=== PATIENT | male | born 1950 | race Caucasian/White ===

== ENCOUNTER 2016-08-01 16:10 | Observation (INO) | payer OTHER ==
[2016-08-01] MEDS ORDERED: SODIUM CHLORIDE 0.9% 1,000 ML IV STA ×2 (16:32)
[2016-08-01 16:55] LABS: Basophils # (A) 0.1 k/uL (0-0.2); Basophils % (A) 1 %; CH 31.6; CHCM 34.3; Eosinophils # (A) 0.2 k/uL (0-0.7); Eosinophils % (A) 3 %; HCT 46.1 % (39.0-53.0); HDW 2.71; HGB 15.6 gm/dL (13.0-17.5); Luc # (Auto) 0.18; Luc % (Auto) 2; Lymphocytes # (A) 2.2 k/uL (1.0-4.8); Lymphocytes % (A) 27 %; MCH 31.3 pg (25.0-35.0); MCHC 33.8 g/dL (31.0-37.0); MCV 92.5 fL (80.0-100.0); Mean Platelet Volume 8.4; Monocytes # (A) 0.4 k/uL (0-1.0); Monocytes % (A) 5 %; Neutrophils # (A) 4.8 k/uL (1.3-7.7); Neutrophils % (A) 61 %; RBC 4.98 m/uL (4.30-5.90); RDW 13.9 % (11.5-15.5); WBC 7.9 k/uL (3.8-10.6); WBC (Perox) 7.44
[2016-08-01 17:02] LABS: ALT 67 U/L (21-72); AST 41 U/L (17-59); Alkaline Phosphatase 74 U/L (38-126); Anion Gap 9 mmol/L; Blood Urea Nitrogen 23 mg/dL (9-20); Calcium 9.2 mg/dL (8.4-10.2); Carbon Dioxide 23 mmol/L (22-30); Chloride 109 mmol/L (98-107); Glucose 160 mg/dL (74-99); Magnesium 2.2 mg/dL (1.6-2.3); Non-African American GFR(MDRD) 58 (>60 ml/min/1.73 sqM); Phosphorous 3.5 mg/dL (2.5-4.5); Potassium 4.1 mmol/L (3.5-5.1); Sodium 141 mmol/L (137-145); Total Bilirubin 1.2 mg/dL (0.2-1.3); Total Protein 6.9 g/dL (6.3-8.2)
[2016-08-01 17:18] LABS: Creatine Kinase MB 1.9 ng/mL (0.0-2.4); Troponin I 0.019 ng/mL (0.000-0.034)
--- NOTE | 2016-08-01 17:32 | ED ---
General Adult HPI - General Chief complaint: Weakness Stated complaint: SOB Source: patient, family, RN notes reviewed, old records reviewed Mode of arrival: wheelchair Limitations: no limitations - History of Present Illness Initial comments: This is a 66 male to the ED co weakness, lethargy, generalized fatigue, patient did long 11 hr day in truck without Air conditioning yesterday. Patient is weak and has remained weak and fatigued today and throughout the day. Patient has no CP and no SOB, no fevers, does admit to diminished appetite MD Complaint: weakness, fatigue -: days(s) (1) Severity scale (1-10): 7 Consistency: constant Improves with: none Worsens with: none Associated Symptoms: weakness - Related Data Home Medications Medication Instructions Recorded Confirmed Metoprolol Tartrate 12.5 mg PO BID 12/19/15 08/01/16 Aspirin 325 mg PO DAILY 08/01/16 08/01/16 Loratadine-Pseudoeph 10-240 mg 1 tab PO DAILY 08/01/16 08/01/16 [Claritin-D 24 Hr] Allergies Allergy/AdvReac Type Severity Reaction Status Date / Time brompheniramine maleate Allergy Unknown Verified 08/01/16 16:42 [From Dimetapp Cold-Allergy (PE)] phenylephrine HCl Allergy Unknown Verified 08/01/16 16:42 [From Dimetapp Cold-Allergy (PE)] Review of Systems ROS Statement: Those systems with pertinent positive or pertinent negative responses have been documented in the HPI. ROS Other: All systems not noted in ROS Statement are negative. Past Medical History Past Medical History: Atrial Fibrillation, Mitral Valve Prolapse (MVP) Additional Past Medical History / Comment(s): Mitral Valve Prolapse. History of Any Multi-Drug Resistant Organisms: None Reported Past Surgical History: Appendectomy, Hernia Repair, Tonsillectomy Additional Past Surgical History / Comment(s): COLONOSCOPY Past Anesthesia/Blood Transfusion Reactions: No Reported Reaction Past Psychological History: No Psychological Hx Reported Smoking Status: Never smoker Past Alcohol Use History: None Reported Past Drug Use History: None Reported - Past Family History Mother Family Medical History: Dementia, Hypertension Father Family Medical History: Cancer Additional Family Medical History / Comment(s): has pacemaker, father had colon cancer in his 70's General Exam Limitations: no limitations General appearance: alert, in no apparent distress, anxious, lethargic Head exam: Present: atraumatic, normocephalic, normal inspection Eye exam: Present: normal appearance, PERRL, EOMI. Absent: scleral icterus, conjunctival injection, periorbital swelling ENT exam: Present: normal exam, mucous membranes dry, TM's normal bilaterally Neck exam: Present: normal inspection. Absent: tenderness, meningismus, lymphadenopathy Respiratory exam: Present: normal lung sounds bilaterally. Absent: respiratory distress, wheezes, rales, rhonchi, stridor Cardiovascular Exam: Present: tachycardia, irregular rhythm, normal heart sounds. Absent: systolic murmur, diastolic murmur, rubs, gallop, clicks GI/Abdominal exam: Present: soft, normal bowel sounds. Absent: distended, tenderness, guarding, rebound, rigid Extremities exam: Present: normal inspection, full ROM, normal capillary refill. Absent: tenderness, pedal edema, joint swelling, calf tenderness Back exam: Present: normal inspection Neurological exam: Present: alert, oriented X3, CN II-XII intact Psychiatric exam: Present: normal affect, normal mood Skin exam: Present: warm, dry, intact, normal color. Absent: rash Course Vital Signs 08/01/16 08/01/16 16:13 17:17 Temperature 97.8 F Pulse Rate 56 L 70 Respiratory 16 20 Rate Blood Pressure 105/67 100/70 O2 Sat by Pulse 99 97 Oximetry EKG Findings - EKG Comments: EKG Findings:: EKG shows atrial fibrillationwith a rate of 126, afib with rvr, qrs 78, qtc 457 Medical Decision Making - Medical Decision Making 60 formality ER for evaluation of severe shortness of breath and weakness lethargy. Patient states was in the car from extended period of time with no air conditioning in extreme heat. Patient been fatigued all day, no specific chest pain with exertional shortness of breath. Patient be admitted for cardiac observation at this time he has no real improvement with IV fluid - Lab Data Result diagrams: 08/01/16 16:33 08/01/16 16:33 Lab Results 08/01/16 08/01/16 08/01/16 Range/Units 16:33 16:33 16:33 WBC 7.9 (3.8-10.6) k/uL RBC 4.98 (4.30-5.90) m/uL Hgb 15.6 (13.0-17.5) gm/dL Hct 46.1 (39.0-53.0) % MCV 92.5 (80.0-100.0) fL MCH 31.3 (25.0-35.0) pg MCHC 33.8 (31.0-37.0) g/dL RDW 13.9 (11.5-15.5) % Plt Count 209 (150-450) k/uL Neutrophils % 61 % Lymphocytes % 27 % Monocytes % 5 % Eosinophils % 3 % Basophils % 1 % Neutrophils # 4.8 (1.3-7.7) k/uL Lymphocytes # 2.2 (1.0-4.8) k/uL Monocytes # 0.4 (0-1.0) k/uL Eosinophils # 0.2 (0-0.7) k/uL Basophils # 0.1 (0-0.2) k/uL Sodium 141 (137-145) mmol/L Potassium 4.1 (3.5-5.1) mmol/L Chloride 109 H (98-107) mmol/L Carbon Dioxide 23 (22-30) mmol/L Anion Gap 9 mmol/L BUN 23 H (9-20) mg/dL Creatinine 1.26 H (0.66-1.25) mg/dL Est GFR (MDRD) Af Amer >60 (>60 ml/min/1.73 sqM) Est GFR (MDRD) Non-Af 58 (>60 ml/min/1.73 sqM) Glucose 160 H (74-99) mg/dL Calcium 9.2 (8.4-10.2) mg/dL Phosphorus 3.5 (2.5-4.5) mg/dL Magnesium 2.2 (1.6-2.3) mg/dL Total Bilirubin 1.2 (0.2-1.3) mg/dL AST 41 (17-59) U/L ALT 67 (21-72) U/L Alkaline Phosphatase 74 (38-126) U/L Total Creatine Kinase 153 (55-170) U/L CK-MB (CK-2) 1.9 (0.0-2.4) ng/mL CK-MB (CK-2) Rel Index 1.2 Troponin I 0.019 (0.000-0.034) ng/mL Total Protein 6.9 (6.3-8.2) g/dL Albumin 4.2 (3.5-5.0) g/dL Urine Color Urine Appearance (Clear) Urine pH (5.0-8.0) Ur Specific [place] (1.001-1.035) Urine Protein (Negative) Urine Glucose (UA) (Negative) Urine Ketones (Negative) Urine Blood (Negative) Urine Nitrite (Negative) Urine Bilirubin (Negative) Urine Urobilinogen (<2.0) mg/dL Ur Leukocyte Esterase (Negative) Urine RBC (0-5) /hpf Urine WBC (0-5) /hpf Ur Squamous Epith Cells (0-4) /hpf Amorphous Sediment (None) /hpf Hyaline Casts (0-2) /lpf Urine Mucus (None) /hpf 08/01/16 Range/Units 17:39 WBC (3.8-10.6) k/uL RBC (4.30-5.90) m/uL Hgb (13.0-17.5) gm/dL Hct (39.0-53.0) % MCV (80.0-100.0) fL MCH (25.0-35.0) pg MCHC (31.0-37.0) g/dL RDW (11.5-15.5) % Plt Count (150-450) k/uL Neutrophils % % Lymphocytes % % Monocytes % % Eosinophils % % Basophils % % Neutrophils # (1.3-7.7) k/uL Lymphocytes # (1.0-4.8) k/uL Monocytes # (0-1.0) k/uL Eosinophils # (0-0.7) k/uL Basophils # (0-0.2) k/uL Sodium (137-145) mmol/L Potassium (3.5-5.1) mmol/L Chloride (98-107) mmol/L Carbon Dioxide (22-30) mmol/L Anion Gap mmol/L BUN (9-20) mg/dL Creatinine (0.66-1.25) mg/dL Est GFR (MDRD) Af Amer (>60 ml/min/1.73 sqM) Est GFR (MDRD) Non-Af (>60 ml/min/1.73 sqM) Glucose (74-99) mg/dL Calcium (8.4-10.2) mg/dL Phosphorus (2.5-4.5) mg/dL Magnesium (1.6-2.3) mg/dL Total Bilirubin (0.2-1.3) mg/dL AST (17-59) U/L ALT (21-72) U/L Alkaline Phosphatase (38-126) U/L Total Creatine Kinase (55-170) U/L CK-MB (CK-2) (0.0-2.4) ng/mL CK-MB (CK-2) Rel Index Troponin I (0.000-0.034) ng/mL Total Protein (6.3-8.2) g/dL Albumin (3.5-5.0) g/dL Urine Color Yellow Urine Appearance Clear (Clear) Urine pH 5.5 (5.0-8.0) Ur Specific [place] 1.020 (1.001-1.035) Urine Protein 1+ H (Negative) Urine Glucose (UA) Trace H (Negative) Urine Ketones Negative (Negative) Urine Blood Negative (Negative) Urine Nitrite Negative (Negative) Urine Bilirubin Negative (Negative) Urine Urobilinogen <2.0 (<2.0) mg/dL Ur Leukocyte Esterase Negative (Negative) Urine RBC 1 (0-5) /hpf Urine WBC 3 (0-5) /hpf Ur Squamous Epith Cells <1 (0-4) /hpf Amorphous Sediment Rare H (None) /hpf Hyaline Casts 8 H (0-2) /lpf Urine Mucus Many H (None) /hpf Critical Care Time Critical Care Time: Yes Total Critical Care Time: 31 Disposition Clinical Impression: Atrial fibrillation with RVR, Chest pain, Dehydration, Weakness Disposition: ADMITTED IP TO THIS [facility] Condition: Good Referrals: Bernabe Joaquin DO [Primary Care Provider] - 1-2 days
[2016-08-01 17:53] LABS: Amorphous Sediment,Urine Rare /hpf; Appearance,Urine Clear (Clear); Bilirubin,Urine Negative (Negative); Glucose,Urine (UA) Trace (Negative); Ketones,Urine Negative (Negative); Leukocyte Esterase,Urine Negative (Negative); Mucus,Urine Many /hpf; Nitrite,Urine Negative (Negative); PH, Urine 5.5 (5.0-8.0); Particle Count 9769; Protein,Urine 1+ (Negative); RBC,Urine 1 /hpf (0-5); Squamous Epithelial Cell,Urine <1 /hpf (0-4); UA Billing (MACRO vs. MICRO) MICRO; Urobilinogen,Urine <2.0 mg/dL (<2.0); WBC,Urine 3 /hpf (0-5)
[2016-08-01] MEDS ORDERED: HEPARIN SODIUM,PORCINE 5,000 UNIT/ML 1 ML VIAL IV PRN (18:17)
[2016-08-01] MEDS ORDERED: ASPIRIN 81 MG CHEW PO STA (18:17)
[2016-08-01] MEDS ORDERED: NITROGLYCERIN SL TABS 0.4 MG TAB SUBLINGUAL PRN (18:17)
[2016-08-01] MEDS ORDERED: HEPARIN SODIUM,PORCINE 5,000 UNIT/ML 1 ML VIAL IV ONE (18:17)
[2016-08-01] MEDS ORDERED: HEPARIN SODIUM,PORCINE/D5W PMX 25,000 UNIT in DEXTROSE/WATER 1 500ML.BAG IV SCH (18:30)
[2016-08-01] MEDS: SODIUM CHLORIDE 0.9% 1,000 ML IV SCH ×2 (19:17→20:42)
[2016-08-01 20:32] VITALS: BMI 29.5
[2016-08-01 23:33] LABS: Creatine Kinase 108 U/L (55-170)
[2016-08-01 23:46] LABS: Creatine Kinase MB 1.6 ng/mL (0.0-2.4); Troponin I <0.012 ng/mL (0.000-0.034)
[2016-08-02 05:26] LABS: Creatine Kinase 115 U/L (55-170)
[2016-08-02 05:39] LABS: Creatine Kinase MB 1.6 ng/mL (0.0-2.4); Troponin I <0.012 ng/mL (0.000-0.034)
[2016-08-02 07:21] LABS: Mean Platelet Volume 8.4
[2016-08-02 07:44] LABS: Cholesterol 115 mg/dL (<200); HDL Cholesterol 32 mg/dL (40-60); Triglycerides 74 mg/dL (<150)
[2016-08-02] MEDS ORDERED: ASPIRIN 325 MG TAB PO SCH (09:00)
[2016-08-02] MEDS ORDERED: METOPROLOL TARTRATE 12.5 MG TAB PO SCH (09:00)
--- NOTE | 2016-08-02 10:35 | ECHOF ---
Referral Reason:Afib MEASUREMENTS -------- HEIGHT: 160.0 cm WEIGHT: 107.0 kg BP: 107/71 IVSd: 1.4 cm (0.6 - 1.1) LVIDd: 4.5 cm (3.9 - 5.3) LVPWd: 1.3 cm (0.6 - 1.1) IVSs: 1.8 cm LVIDs: 3.2 cm LVPWs: 1.6 cm Ao Diam: 3.3 cm (2.0 - 3.7) AV Cusp: 2.6 cm (1.5 - 2.6) LA Diam: 3.9 cm (2.7 - 3.8) MV EXCURSION: 18.048 mm (> 18.000) MV EF SLOPE: 81 mm/s (70 - 150) EPSS: 0.9 cm MV E [place]: 1.19 m/s MV DecT: 225 ms MV A [place]: 1.28 m/s MV E/A Ratio: 0.93 RAP: 5.00 mmHg RVSP: 13.49 mmHg FINDINGS -------- Sinus rhythm. This was a technically good study. There is moderate concentric left ventricular hypertrophy. Overall left ventricular systolic function is normal with, an EF between 55 - 60 %. The right ventricle is normal in size and function. The left atrium is normal in size. The right atrium is normal in size. The aortic valve is trileaflet, and appears structurally normal. No aortic stenosis or regurgitation. Mild mitral regurgitation is present. Mild tricuspid regurgitation present. The right ventricular systolic pressure, as measured by Doppler, is 13.49mmHg. Pulmonic valve appears structurally normal. The aortic root size is normal. The pericardium is normal. CONCLUSIONS -------- 1. Sinus rhythm. 2. Mild tricuspid regurgitation present. 3. The right ventricular systolic pressure, as measured by Doppler, is 13.49mmHg. 4. Pulmonic valve appears structurally normal. 5. The aortic root size is normal. 6. The pericardium is normal. 7. This was a technically good study. 8. There is moderate concentric left ventricular hypertrophy. 9. Overall left ventricular systolic function is normal with, an EF between 55 - 60 %. 10. The right ventricle is normal in size and function. 11. The left atrium is normal in size. 12. The right atrium is normal in size. 13. The aortic valve is trileaflet, and appears structurally normal. No aortic stenosis or regurgitation. 14. Mild mitral regurgitation is present. DIE POLISHER: Merna Dunham RDCS
[2016-08-02 11:58] VITALS: BP 127/79; PULSE 67; RESP 16; TEMP 97.7
--- NOTE | 2016-08-02 14:46 | P.DS ---
Providers Date of admission: 08/01/16 18:18 Expected date of discharge: 08/02/16 Attending physician: Jong Romero Consults: 08/01/16 18:18 Consult Physician Urgent Consulting Provider: Shonda Freeman Consult Reason/Comments: [email or web address] Do you want consulting provider notified?: Yes Primary care physician: [facility] Hospital Course: 66-year-old male presented on the day of admission to the emergency room with a chief complaint of generalized fatigue. 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 He felt weak and fatigued and tired throughout the day. Denied any shortness of breath denied any chest pain denied fevers chilled. Did report having decreased appetite. Additionally patient is a history of atrial fibrillation. Patient's 12-lead EKG in the emergency room showed atrial fibrillation the rate was 126 patient did convert to sinus rhythm. Patient was treated with IV hydration the creatinine was 1.2 cardiac enzymes 3 sets were negative patient was seen by cardiology service who ordered an echocardiogram echocardiogram showed the left ventricular systolic function normal EF between 55 and 60%. No valvular heart disease. Cardiology indicated no further cardiac workup. Patient was treated for what appeared to be clinical dehydration with IV fluid with a noted improvement in patient's clinical status. Patient stated that he had been on a blood thinner for an episode of atrial fibrillation about 3 years ago but stopped taking does see a emblem fuser tender in [facility]. Impression discharge diagnosis Present on admission increased fatigue decreased endurance poor oral intake suspect due to dehydration Present on admission acute renal insufficiency suspect due to clinical dehydration poor oral intake History of paroxysmal atrial fibrillation Present on admission atrial fibrillation with a rapid ventricular response rate 120 compared to sinus rhythm The above dictated assessment and findings were discussed with dr romero Impression and the plan of care have been dictated as directed. Dianna Martin nurse practitioner acting as a scribe for dr romero. Patient Condition at Discharge: Good Plan - Discharge Summary New Discharge Prescriptions: New Aspirin 325 mg PO DAILY tab Continue Metoprolol Tartrate 12.5 mg PO BID Loratadine-Pseudoeph 10-240 mg [Claritin-D 24 Hour] 1 tab PO DAILY Aspirin 325 mg PO DAILY Discharge Medication List Metoprolol Tartrate 12.5 mg PO BID 12/19/15 [History] Aspirin 325 mg PO DAILY 08/01/16 [History] Loratadine-Pseudoeph 10-240 mg [Claritin-D 24 Hour] 1 tab PO DAILY 08/01/16 [ History] Aspirin 325 mg PO DAILY tab 08/02/16 [Rx] Follow up Appointment(s)/Referral(s): Jong Romero MD [STAFF PHYSICIAN] - 3 Days Alannah Kaur MD [STAFF PHYSICIAN] - 4 Weeks (Office will call Pt at home) Discharge Disposition: HOME SELF-CARE
--- NOTE | 2016-08-02 16:05 | CONS ---
DATE OF CONSULTATION: Mr. Castro is a 66-year-old male who presented with symptoms of fatigue going on for 2 days. Subsequently he came into the emergency room and was noted to be in atrial fibrillation and admitted to the hospital. Patient has a prior history of paroxysmal atrial fibrillation and has been in sinus mechanism, according to him. Over the weekend he was in his truck that has no air conditioning for a long period of time and was feeling weak. Symptoms did not improve. Because of that, he came into the emergency room. He denies any chest pain. He denies any dizziness. He felt, according to him, similar to what he felt a few years ago when he was in atrial fibrillation. He had paroxysmal atrial fibrillation and has been seen by Dr. Butler in the past. His workup otherwise was unremarkable, according to him. He had significant dyspnea on exertion, no dizziness, no syncope, no PND, orthopnea or peripheral edema. He has no history of alcohol intake. He drinks caffeinated beverages. His coronary risk factors are negative for hypertension, hyperlipidemia or diabetes. His medications at home include: 1. Aspirin. 2. Metoprolol tartrate 12.5 mg twice a day. 3. Claritin D on a p.r.n. basis. REVIEW OF SYSTEMS: RESPIRATORY SYSTEM: He has no recent wheezing. No cough. No history of obstructive lung disease. GI SYSTEM: No recent GI bleeding. No peptic ulcer disease. SYSTEM: No dysuria or hematuria. NERVOUS SYSTEM: No history of stroke or seizure. PHYSICAL EXAMINATION: A 66-year-old male, alert, oriented, in no apparent distress. Blood pressure 107/70 with a heart rate in the 70s. HEAD: Normocephalic. EYES: Sclerae anicteric. NECK: Good carotid upstroke. No bruit. No jugular venous distention. LUNGS: Clear to auscultation. HEART: Regular rate, rhythm. S1, S2. Plus S4. No rub noted. ABDOMEN: Soft, nontender. Positive bowel sounds. No organomegaly. EXTREMITIES: No edema. Intact distal pulses. Lab data revealed troponin less than 0.012, cholesterol 115, LDL of 68. BUN and creatinine of 23 and 1.26. Potassium 4.1. Glucose 160. Hemoglobin 15.6. Initial EKG revealed atrial fibrillation with nonspecific ST-T wave changes. Subsequent EKG this morning revealed sinus mechanism, rate of 66. IMPRESSION: Symptoms of fatigue associated with paroxysmal atrial fibrillation. Patient is back in sinus mechanism. In 2014 he had a normal systolic function; according to him, he had a stress test about a year ago that was unremarkable. His JAMA-VASC score is low. RECOMMENDATION: At this time I will stop the heparin. I will obtain echocardiogram with Doppler. If there is no significant abnormality, then patient should be able to be discharged home and follow up as an outpatient with Dr. Butler. Thank you for this consult. Will follow with you.
--- NOTE | 2016-08-03 14:17 | HP ---
DATE OF ADMISSION: CHIEF COMPLAINT: Weakness, lightheadedness, dehydration and atrial fibrillation. HISTORY OF PRESENT ILLNESS: This is another admission for this 66-year-old white male. He has been doing quite a bit and had become dehydrated. He then went into atrial fibrillation. He has had this in the past. He did not have any chest pain, syncope, etc. He came to emergency room where he converted spontaneously and IV was started for rehydration. REVIEW OF SYSTEMS: He has had no headaches, syncope, change in vision or hearing, chest pain, hemoptysis, sputum production, murmurs, rheumatic fever, angina, infarctions, congestive heart failure, orthopnea, PND, etc. Patient had no abdominal pain and he has had no nausea, vomiting, diarrhea, melena, hematochezia, jaundice, hepatitis, cirrhosis, hematuria, renal failure, dysuria, no significant arthralgias, diabetes, etc. Past medical history, family history and personal and social histories reveal that he cannot take Dimetapp. The medications in the past have included: 1. Metoprolol 25 mg 1/2 twice a day. 2. Aspirin. 3. He has not been taking to any medications of late. PAST SURGICAL HISTORY: He has had an appendectomy and a herniorrhaphy with a T&A. He does not smoke or drink. PHYSICAL EXAMINATION: Blood pressure 126/80 with a pulse of 102, respirations 32, and he is afebrile. GENERAL: Appeared to be well-developed, well-nourished, in no acute distress. Skin color is normal. Skin is warm and dry. Lymph nodes are not enlarged. Head, ears, eyes, nose, mouth, and throat were normal and neck veins are not distended. Thyroid is not palpable. The chest is clear to auscultation and percussion. Cardiac exam demonstrates normal sinus rhythm. No murmurs or extra sounds. The abdomen is soft, nontender without any visceromegaly or masses. Bowel sounds are present. Extremities are normal. Neurologically, he is intact. IMPRESSION: 1. Dehydration. 2. Atrial fibrillation. 3. History of atrial fibrillation bed in the past. PLAN: 1. Bed rest. 2. IV fluids. 3. Rehydrate. 4. Follow patient after he leaves the hospital and make a determination as to whether or not he should go back on the beta marty. He should take aspirin.
--- NOTE | 2016-08-03 14:19 | PN ---
DATE OF SERVICE: 08/02/2016 CHIEF COMPLAINT: Dehydration and atrial fibrillation. HISTORY OF PRESENT ILLNESS: This gentleman is doing well. He has had no shortness of breath, nausea, vomiting, weakness, etc. He is in sinus rhythm and feels fine. He can probably go home later today. PHYSICAL EXAMINATION: His chest clear. Cardiac exam is normal and the abdomen is soft and nontender. IMPRESSION: 1. Dehydration. 2. Atrial fibrillation with spontaneous conversion to normal sinus rhythm. PLAN: Probably home today and this will be arranged by the nurse practitioner.
== END 2016-08-02 15:27 | disposition home or self-care (01) ==
LOC: EC 16:10 → 3OBS 18:18
PROVIDERS: ADMIT Family Medicine; ATTEND Family Medicine
DX: I48.91 Unspecified atrial fibrillation (principal); R07.9 Chest pain, unspecified; E86.0 Dehydration; R53.1 Weakness; R06.02 Shortness of breath; I34.1 Nonrheumatic mitral (valve) prolapse; Z79.82 Long term (current) use of aspirin; Z88.8 Allergy status to other drugs, medicaments and biological substances; Z82.49 Family history of ischemic heart disease and other diseases of the circulatory system; Z81.8 Family history of other mental and behavioral disorders; Z80.0 Family history of malignant neoplasm of digestive organs; Z79.899 Other long term (current) drug therapy
CPT/HCPCS: 96361 ×3; 96376 ×2; 99291 ×2; 96365; 96366 ×2; 36415; 94760; 93005; 93306; 80061; 80053; 82550 ×2; 82553 ×2; 83735; 84100; 84484 ×2; 85025; 85049; 85730; 81001; 87086; G0378 ×2; J1644 ×2

== ENCOUNTER 2017-11-03 15:13 | Emergency (ER) | payer MEDICARE ==
[2017-11-03 15:19] VITALS: RESP 20
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
[2017-11-03 16:08] LABS: Basophils # (A) 0.1 k/uL (0-0.2); Basophils % (A) 1 %; Eosinophils # (A) 0.1 k/uL (0-0.7); Eosinophils % (A) 3 %; HCT 45.8 % (39.0-53.0); HGB 15.7 gm/dL (13.0-17.5); Lymphocytes # (A) 1.9 k/uL (1.0-4.8); Lymphocytes % (A) 35 %; MCH 31.1 pg (25.0-35.0); MCHC 34.3 g/dL (31.0-37.0); MCV 90.6 fL (80.0-100.0); Mean Platelet Volume 8.6; Monocytes # (A) 0.4 k/uL (0-1.0); Monocytes % (A) 7 %; Neutrophils # (A) 2.9 k/uL (1.3-7.7); Neutrophils % (A) 52 %; Platelet Count 168 k/uL (150-450); RBC 5.05 m/uL (4.30-5.90); RDW 13.3 % (11.5-15.5); WBC 5.6 k/uL (3.8-10.6)
[2017-11-03 16:16] LABS: INR 1.1 (<1.2); Partial Thromboplastin Time 25.3 sec (22.0-30.0); Prothrombin Time 10.4 sec (9.0-12.0)
[2017-11-03 16:19] LABS: Albumin 4.3 g/dL (3.5-5.0); Calcium 9.2 mg/dL (8.4-10.2); Magnesium 2.1 mg/dL (1.6-2.3); Potassium 3.9 mmol/L (3.5-5.1); Total Bilirubin 0.8 mg/dL (0.2-1.3)
[2017-11-03 16:28] LABS: Creatine Kinase 112 U/L (55-170)
--- NOTE | 2017-11-03 16:37 | CT ---
EXAMINATION TYPE: CT brain wo con DATE OF EXAM: 11/03/2017 COMPARISON: None HISTORY: 67-year-old male with pain, Dizziness TECHNIQUE: Examination was done in axial plane without intravenous contrast. Coronal and sagittal r econstructions performed. CT DLP: 1171 mGycm Automated exposure control for dose reduction was used. FINDINGS: There is no evidence of acute intracranial hemorrhage, acute ischemic changes, mass, mass-effect, or extra-axial fluid collection. There is no effacement of cerebral sulci or basal subarachnoid cister ns. There is no hydrocephalus. There is no midline shift. Sun-white matter distinction is preserv ed. Trace mucosal thickening within the ethmoid air cells. Mastoid air cells well pneumatized. Orbits and globes are intact. IMPRESSION: No acute intracranial abnormality seen.
--- NOTE | 2017-11-03 16:39 | XR ---
EXAMINATION TYPE: XR chest 2V DATE OF EXAM: 11/03/2017 COMPARISON: 06/11/2017 HISTORY: 67-year-old male with chest pain TECHNIQUE: PA and lateral views FINDINGS: Heart normal size. Mild elongation thoracic aorta. Mild diffuse interstitial prominence shows some im provement from prior exam. There is some minimal patchy left basilar opacity seen posteriorly on the lateral view. No pleural effusion. IMPRESSION: Mild patchy posterior left basilar opacity could represent atelectasis or early infiltrate. Correlate for any infectious respiratory signs/symptoms.
[2017-11-03 16:41] LABS: Creatine Kinase MB 1.3 ng/mL (0.0-2.4); Troponin I <0.012 ng/mL (0.000-0.034)
[2017-11-03 17:59] VITALS: BP 120/81; PULSE 62; TEMP 98.3
== END 2017-11-03 17:50 | disposition home or self-care (01) ==
LOC: EC 15:13
DX: R42 Dizziness and giddiness (principal); I48.91 Unspecified atrial fibrillation; Z88.8 Allergy status to other drugs, medicaments and biological substances
CPT/HCPCS: 36415; 70450; 71046; 80053; 82550; 82553; 83735; 84484; 85025; 85610; 85730; 93005; 99285

== ENCOUNTER → 2019-01-06 | Outpatient (CLI) | payer MEDICARE, OTHER ==
--- NOTE | 2019-01-06 18:47 | MR ---
EXAMINATION TYPE: MR iac wo/w con DATE OF EXAM: 01/06/2019 COMPARISON: HISTORY: Hearing loss TECHNIQUE: Multiplanar, multisequence images of the brain and brainstem is performed without and with IV contras t, utilizing 10 mL intravenous Gadavist . FINDINGS: There is mild cerebral cortical atrophy. There is no mass effect nor midline shift. There i s no sign of intracranial hemorrhage. There is no evidence of cortical infarct. There is no sign of c erebral edema. Brainstem is intact. Corpus callosum is intact. Sella turcica appears normal. Internal auditory canals appear normal. There is no evidence of cerebellopontine angle mass. The acou stic nerve and vestibular nerves appear normal. The temporal bones appear intact. Contrast images sussy w no pathologic enhancement. IMPRESSION: Minimal cerebral atrophy. Otherwise negative exam. No evidence of posterior fossa focal a bnormality.
== END | disposition home or self-care (01) ==
LOC: RADMRIMAIN 14:22
PROVIDERS: ATTEND Otolaryngology
DX: G31.9 Degenerative disease of nervous system, unspecified (principal)
CPT/HCPCS: 70553; A9585

== ENCOUNTER 2019-02-08 12:41 | Emergency (ER) | payer MEDICARE, OTHER ==
[2019-02-08] MEDS ORDERED: SODIUM CHLORIDE 0.9% 1,000 ML IV STA ×2 (13:06)
[2019-02-08] MEDS ORDERED: MECLIZINE 12.5 MG TAB PO STA (13:06)
[2019-02-08] MEDS ORDERED: METOCLOPRAMIDE 5 MG/ML 2 ML VIAL IVP STA (13:07)
[2019-02-08] MEDS ORDERED: MECLIZINE 25 MG TAB PO STA (13:09)
[2019-02-08 13:36] LABS: Basophils # (A) 0.1 k/uL (0-0.2); Basophils % (A) 1 %; Eosinophils # (A) 0.1 k/uL (0-0.7); Eosinophils % (A) 2 %; HCT 46.1 % (39.0-53.0); HGB 15.6 gm/dL (13.0-17.5); Lymphocytes # (A) 1.1 k/uL (1.0-4.8); Lymphocytes % (A) 13 %; MCH 31.4 pg (25.0-35.0); MCHC 33.8 g/dL (31.0-37.0); MCV 92.8 fL (80.0-100.0); Monocytes # (A) 0.4 k/uL (0-1.0); Monocytes % (A) 5 %; Neutrophils # (A) 6.3 k/uL (1.3-7.7); Neutrophils % (A) 78 %; Platelet Count 173 k/uL (150-450); RBC 4.97 m/uL (4.30-5.90); RDW 13.3 % (11.5-15.5); WBC 8.1 k/uL (3.8-10.6)
[2019-02-08 13:46] LABS: ALT 32 U/L (4-49); AST 37 U/L (17-59); African American GFR (CKD) >90 (>60 ml/min/1.73 sqM); Albumin 4.5 g/dL (3.5-5.0); Alkaline Phosphatase 60 U/L (38-126); Blood Urea Nitrogen 17 mg/dL (9-20); Calcium 9.6 mg/dL (8.4-10.2); Carbon Dioxide 25 mmol/L (22-30); Chloride 106 mmol/L (98-107); Glucose 155 mg/dL (74-99); Non-African American GFR(CKD) 87 (>60 ml/min/1.73 sqM); Total Bilirubin 1.2 mg/dL (0.2-1.3); Total Protein 7.5 g/dL (6.3-8.2)
[2019-02-08 13:50] LABS: Anion Gap 8 mmol/L; Sodium 139 mmol/L (137-145)
[2019-02-08 13:52] LABS: Potassium 4.4 mmol/L (3.5-5.1)
[2019-02-08 14:10] LABS: INR 0.9 (<1.2)
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
--- NOTE | 2019-02-08 15:09 | XR ---
EXAMINATION TYPE: XR chest 2V DATE OF EXAM: 02/08/2019 COMPARISON: 11/03/2017 HISTORY: Chest pain TECHNIQUE: Frontal and lateral views of the chest are obtained. FINDINGS: There is no focal air space opacity, pleural effusion, or pneumothorax seen. . Resolved le ft basilar patchy airspace disease. The cardiac silhouette size is within normal limits. The osseou s structures are intact. IMPRESSION: No acute cardiopulmonary process.
[2019-02-08 16:32] VITALS: BP 122/89; PULSE 96; RESP 20; TEMP 98.2
[2019-02-08 20:57] LABS: Appearance,Urine Clear (Clear); Bilirubin,Urine Negative (Negative); Blood,Urine Negative (Negative); Color,Urine Yellow; Glucose,Urine (UA) Trace (Negative); Ketones,Urine Trace (Negative); Leukocyte Esterase,Urine Negative (Negative); Nitrite,Urine Negative (Negative); PH, Urine 6.5 (5.0-8.0); Protein,Urine Trace (Negative); Urobilinogen,Urine <2.0 mg/dL (<2.0)
== END 2019-02-08 16:32 | disposition home or self-care (01) ==
LOC: EC 12:41
DX: R42 Dizziness and giddiness (principal); R11.10 Vomiting, unspecified; I48.91 Unspecified atrial fibrillation; Z79.82 Long term (current) use of aspirin; Z88.8 Allergy status to other drugs, medicaments and biological substances
CPT/HCPCS: 36415; 71046; 80053; 81003; 84484; 85025; 85610; 93005; 96361; 96374; 99284